=== PATIENT | male | born 1950 | race Caucasian/White ===

== ENCOUNTER → 2019-11-28 | Day surgery (SDC) | payer MEDICARE, OTHER ==
[~2019-11-28] MED LIST: Acetaminophen 500 MG Tab PO ONE; Bupivacaine 0.5%/EPINEPHrine 1:200,000 30 ML SDV INJECT ONE; Bupivacaine 0.5%/EPINEPHrine 1:200,000 30 ML SDV ONE; Gabapentin 300 MG Cap PO ONE; Ketorolac 30 MG/ML SDV IM ONE; Lactated Ringers 1,000 ML IV SCH; Midazolam 1 MG/ML 2 ML SDV ONE; Propofol 200 MG/20 ML SDV ONE; Rocuronium 50 MG/5 ML Vial ONE; Succinylcholine 200 MG/10 ML MDV ONE; ceFAZolin 1 GM Vial ONE; fentaNYL 100 MCG/2 ML SDV ONE
[2019-11-28 15:37] VITALS: BP 142/79; PULSE 54
--- NOTE | 2019-11-29 14:17 | OR ---
PREOPERATIVE DIAGNOSES: 1. Right inguinal hernia. 2. Umbilical hernia. POSTOPERATIVE DIAGNOSES: 1. Right inguinal hernia. 2. Umbilical hernia. PROCEDURE PERFORMED: 1. Repair of right inguinal hernia with medium PerFix plug and mesh overlay. 2. Primary repair of an umbilical hernia. COMPLICATIONS: None. SPECIMENS: None. ESTIMATED BLOOD LOSS: 10 mL. ANESTHESIA: General. PROCEDURE IN DETAIL: This was done in the operating room. General anesthetic administered. The abdomen and right groin were prepped and draped in sterile manner. A #15 blade was used to make a transverse incision just lateral and superior to the pubic tubercle. Cautery was used to go through the subcutaneous tissue down to the fascia. The fascia was opened with a 15 blade, followed by Metzenbaum. Blunt dissection was done around the corner. Scenic drain was placed for retraction. The patient had a large indirect defect, which was dissected free from the surrounding tissue, inverted, and held in place with a medium PerFix plug, which was sutured in place to the surrounding tissue with #2 Ethibond interrupted sutures. He had very large lipoma of the cord which was ligated and removed from the field. Next, the flat piece of mesh was placed over the floor of the canal and sutured in place with 0 Vicryl interrupted sutures medially to the pubic tubercle, inferior to Lalo's ligament, laterally to the shelving portion of the inguinal ligament. Superiorly, conjoined tendon and 2 tails were wrapped around the cord and reapproximated to recreate the internal ring. External oblique was closed with running 2 Vicryl suture. Subcutaneous tissues closed with 3-0 Vicryl running suture. Skin was closed with running 4-0 Vicryl subcuticular suture and Dermabond. Next, attention was turned to the umbilicus. A 15 blade was used to make an incision following the curve of the umbilicus superiorly. Cautery was used to go through the subcutaneous tissue. The hernia sac was found, dissected free from the umbilical skin correctly at the fascia level. The patient had subcentimeter defects that I closed primarily with the 0 Ethibond sutures. Umbilical skin was reapproximated with 3-0 Vicryl interrupted sutures. Skin was closed with a running 4-0 Vicryl subcuticular suture and Dermabond. The patient was brought to PACU postoperatively and will be sent home later today. BKD: 11/28/2019 13:15:55 MODL: 11/28/2019 18:38:40 /[id number]
== END ==
LOC: VM.SDS 10:06
PROVIDERS: ATTEND Surgery
DX: K40.90 Unilateral inguinal hernia, without obstruction or gangrene, not specified as recurrent (principal); K42.9 Umbilical hernia without obstruction or gangrene; D17.5 Benign lipomatous neoplasm of intra-abdominal organs; I10 Essential (primary) hypertension; E78.5 Hyperlipidemia, unspecified; Z11.59 Encounter for screening for other viral diseases; Z79.899 Other long term (current) drug therapy
CPT/HCPCS: 00830; A9270-GY; C1781; J0330; J0690; J1885; J2250; J2704; J3010; J3490; J7120; U0002

== ENCOUNTER 2022-06-12 16:21 | Observation (INO) | payer MEDICARE, OTHER ==
[2022-06-12 17:48] LABS: CHLORIDE,CL 105 mmol/L (98-107); SODIUM,NA 143 mmol/L (136-145)
[2022-06-12 17:49] LABS: ANION GAP 14.6 mmol/L (5-15); ESTIMATED GFR 59 mL/min (>=60)
[2022-06-12] MEDS: Iopamidol 755 Mg/ML 100 ML Bottle IVPUSH ONE (18:51)
[2022-06-12] MEDS: Apixaban 2.5 MG Tab PO ONE (20:08)
[2022-06-12] MEDS ORDERED: Ondansetron 4 MG Tab.DIS PO PRN (20:08)
[2022-06-12] MEDS ORDERED: Ondansetron 4 MG/2 ML SDV IV PRN (20:08)
[2022-06-12] MEDS ORDERED: Sodium Chloride 0.9% 10 ML Syringe FLUSH PRN (20:08)
[2022-06-13] MEDS: Acetaminophen 325 MG Tab PO PRN (03:37)
[2022-06-13] MEDS: Apixaban 2.5 MG Tab PO SCH (09:25)
[2022-06-13 09:33] VITALS: BP 160/78; PULSE 57
== END 2022-06-13 10:20 | disposition home or self-care (01) ==
LOC: VM.ED 16:21 → VM.MS 19:53
PROVIDERS: ADMIT Physician Assistant Medical; ATTEND Physician Assistant Medical
DX: I26.99 Other pulmonary embolism without acute cor pulmonale (principal); Z79.899 Other long term (current) drug therapy; Z79.82 Long term (current) use of aspirin
CPT/HCPCS: 36415; 70450; 71046; 71275; 80053; 81003; 82550; 83615; 84484; 85025; 85379; 86140; 93005; 93010; 99223; 99238; 99285; A9270-GY; G0378; Q9967